=== PATIENT | male | born 1955 | race Two or more races ===

== ENCOUNTER 2021-03-28 01:15 | Emergency (ER) | payer OTHER ==
[~2021-03-28] VITALS: Ht 165.1 cm; Wt 59.9 kg
--- NOTE | 2021-03-28 01:30 | NUR ---
MELECIO [id number] SHAKING AT HOME SINCE AFTERNOON.PATIENT HAD SHINGLE SHOT 1x DAY AGO PATIENT HAD TAKEN ADVIL 2x HR LACQUER POLISHER. PATIENT A/OX 4, RR EVEN AND UNLABORED, NO SOB NOTED. VSS, PATIENT CONNECTED TO MONITOR. WILL CONTINUE TO MONITOR.
--- NOTE | 2021-03-28 02:24 | NUR ---
Patient discharged to home in stable condition. Written and verbal after care instructions given. Patient verbalizes understanding of instruction.
[2021-03-28 02:25] VITALS: BP 141/87
[2021-03-28] MEDS ORDERED: FINA5TAB11 PO (16:00)
[2021-03-28] MEDS ORDERED: TERA10CA4 PO (16:00)
== END 2021-03-28 02:25 | disposition home or self-care (01) ==
LOC: ER 01:17
DX: R51.9 Headache, unspecified (principal); T50.B95A Adverse effect of other viral vaccines, initial encounter; Y92.89 Other specified places as the place of occurrence of the external cause

== ENCOUNTER 2021-03-28 13:32 | Inpatient (IN) | payer OTHER ==
[~2021-03-28] VITALS: Ht 165.1 cm; Wt 66.2 kg
--- NOTE | 2021-03-28 13:55 | NUR ---
PATIENT CAME IN ER, STATED "Had a booster shot for shingles 03/25 yesterday felt hot/cold/chills/shaky". AOX4, NO SOB NOTED, NO C/O PAIN AT THIS TIME, NO S/O ANY ACUTE DISTRESS NOTED. MAKE COMFORTABLE IN BED. WILL CONTINUE TO MONITOR
[2021-03-28] MEDS ORDERED: IV NS 0.9% 1,000 ML BAG IV ONE ×2 (15:00)
[2021-03-28] MEDS ORDERED: CEFTRIAXONE 1GM BAG (ER ONLY) 50 ML IV ONE ×2 (15:00→15:45)
[2021-03-28] MEDS ORDERED: IBUPROFEN 600 MG TABLET PO ONE (15:00)
[2021-03-28 15:13] LABS: BASOPHILS % (AUTO) 0.4 % (0.0-2.0); EOSINOPHILS % (AUTO) 0.7 % (0.0-6.0); HEMATOCRIT 39 % (39-51); HEMOGLOBIN 13.3 g/dL (13.5-17.5); LYMPHOCYTES # (AUTO) 0.2 K/uL (0.8-4.8); LYMPHOCYTES % (AUTO) 2.1 % (20.0-44.0); MEAN CORPUSCULAR HGB CONC 34 g/dl (31.0-36.0); MEAN CORPUSCULAR VOLUME 92 fL (80-96); MONOCYTES # (AUTO) 0.3 K/uL (0.1-1.30); MONOCYTES % (AUTO) 2.9 % (2.0-12.0); NEUTROPHILS % (AUTO) 93.9 % (43.0-81.0); PLATELET COUNT (AUTO) 132 K/uL (150-450); RED BLOOD CELL COUNT(AUTO) 4.26 MIL/uL (4.5-6.0); WHITE BLOOD COUNT (AUTO) 9.6 K/uL (4.3-11.0)
[2021-03-28 15:26] LABS: CALCIUM, SERUM 8.1 mg/dL (8.5-10.1); CREATININE 1.1 mg/dL (0.6-1.3); POTASSIUM 3.5 mmol/L (3.5-5.1)
[2021-03-28 15:41] LABS: ALBUMIN 2.9 g/dL (3.4-5.0); BILIRUBIN,DIRECT 0.2 mg/dL (0.0-0.2); TOTAL PROTEIN, SERUM 6.3 g/dL (6.4-8.2)
[2021-03-28] MEDS ORDERED: IBUPROFEN 600 MG TABLET ONE (15:57)
[2021-03-28] MEDS ORDERED: FINA5TAB11 PO (16:00)
[2021-03-28] MEDS ORDERED: TERA10CA4 PO (16:00)
--- NOTE | 2021-03-28 16:21 | NUR ---
URINE AND SCOID SWABS ARE SENT TO THE LAB
--- NOTE | 2021-03-28 16:43 | NUR ---
[facility] CALLED SPECIAL FORCES ENGINEER SERGEANT PAGED.
[2021-03-28] MEDS ORDERED: FLAGYL/NS RTU 500 MG/100 ML PIGGYBACK IV ONE (17:00)
[2021-03-28] MEDS ORDERED: ASPIRIN 325 MG TABLET PO ONE (17:00)
--- NOTE | 2021-03-28 17:00 | NUR ---
CARDIO CALLED DR. FAITH AMARAL.
[2021-03-28 17:06] LABS: BILIRUBIN,URINE NEGATIVE (NEGATIVE); COLOR,URINE YELLOW (YELLOW); LEUKOCYTE ESTERASE ,URINE NEGATIVE (NEGATIVE); NITRITE, URINE NEGATIVE (NEGATIVE); PROTEIN,URINE 30 mg/dl (NEGATIVE); UGLUCOSE NEGATIVE (NEGATIVE)
[2021-03-28 17:16] LABS: BACTERIA,URINE RARE /HPF (None Seen)
[2021-03-28 17:17] LABS: MUCUS,URINE Few /LPF (None Seen)
[2021-03-28] MEDS ORDERED: ASPIRIN 81 MG TAB.CHEW ONE (17:26)
--- NOTE | 2021-03-28 17:46 | NUR ---
NURSING SUP CALLED AND GOING TO [id number]. NURSE IS WAYLON
[2021-03-28] MEDS ORDERED: ONDANSETRON HCL/PF 4 MG/2 ML VIAL IVP PRN (18:30)
[2021-03-28] MEDS: ENOXAPARIN SODIUM 40 MG/0.4 ML DISP.SYRIN SQ SCH ×2 (18:30→21:33)
[2021-03-28] MEDS ORDERED: Z GUARD REMEDY 2 OZ OINT TP PRN (18:30)
[2021-03-28] MEDS ORDERED: ZOLPIDEM TARTRATE 5 MG TABLET PO PRN (18:30)
[2021-03-28] MEDS ORDERED: MORPHINE SULFATE INJ 2 MG/ML DISP.SYRIN IV PRN (18:30)
[2021-03-28] MEDS ORDERED: MAGNESIUM HYDROXIDE 30 ML UDC PO PRN (18:30)
[2021-03-28] MEDS ORDERED: PANTOPRAZOLE 40 MG VIAL IV ONE ×2 (18:30→21:30)
[2021-03-28] MEDS ORDERED: ACETAMINOPHEN 325 MG TABLET PO PRN (18:30)
--- NOTE | 2021-03-28 18:46 | NUR ---
report given to nurse Moody
--- NOTE | 2021-03-28 18:49 | NUR ---
the patient is transfered to 322 in stable comdition and per policy.
--- NOTE | 2021-03-28 18:58 | NUR ---
RN NOTE PT TRANSFERRED TO ROOM. SELF AMBULATORY WITH STEADY GAIT. IV PRESENT ON L AV 18G PATENT AND FLUSHES WELL. V/S CHECKED. WILL ENDORSE ADMISSION TO PAINTER ORDNANCE NURSE. REPORT GIVEN TO PAINTER ORDNANCE NURSE.
[2021-03-28 19:04] VITALS: BP 112/64
[2021-03-28 19:21] LABS: PROSTATE SPECIFIC ANTIGEN SCR 2.43 ng/mL (0.00-4.00)
[2021-03-28 20:00] VITALS: BP 115/70
--- NOTE | 2021-03-28 20:00 | NUR ---
GARMENT MANUFACTURING SUPERVISORBRAN MIXER NOTES Patient is A&Ox4. VSS. Denies pain or discomfort at this time. No signs of distress. Denies pain or SOB. Pupils equal and reactive to light. 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 Heart rate and rhythm regular. Lung sounds clear throughout. Bowel sounds active x4 quadrants. Lower abd/bowel/upper bladder tender when palpated. Urine clear and jenni. All extremities move evenly. Skin Intact. Hooked up to tele monitor. Oriented patient to unit. IV fluids infusing to LAC #18G.
--- NOTE | 2021-03-28 21:04 | NUR ---
Patient not available at 1830, report received at 1930. 1830 medication Lovenox and Protonix non-administered and re-scheduled for 2100.
[2021-03-28] MEDS: IV NS 0.9% 1,000 ML IV PRN (21:15)
[2021-03-28] MEDS ORDERED: METRONIDAZOLE 500MG/ NS 100ML 100 ML IV ONE (21:56)
[2021-03-28] MEDS: METRONIDAZOLE 500MG/ NS 100ML 500 MG in PREMIX 1 EA IV SCH (21:58)
[2021-03-29] VITALS: BP 120/68
[2021-03-29] MEDS ORDERED: ACETAMINOPHEN 650 MG/SUPP.RECT RC PRN (02:30)
--- NOTE | 2021-03-29 02:45 | NUR ---
Patient with fever 101.2. shaking and chills. New order from for Tylenol 650mg supp since pt is NPO. Given as ordered
[2021-03-29] MEDS ORDERED: IV NS 0.9% 500 ML IV ONE ×2 (03:00)
[2021-03-29 04:00] VITALS: BP 108/52
[2021-03-29] MEDS ORDERED: METRONIDAZOLE 500MG/ NS 100ML 100 ML IV ONE (04:59)
[2021-03-29] MEDS: METRONIDAZOLE 500MG/ NS 100ML 500 MG in PREMIX 1 EA IV SCH ×3 (05:00→20:10)
--- NOTE | 2021-03-29 05:00 | NUR ---
Patient temperature still 102.0 cooling measures initiated, ice pack to core body, cool towel to forehead, room temperature decreased.
--- NOTE | 2021-03-29 07:00 | NUR ---
MS RN CLOSING NOTES Patient is A&Ox4. Stating he feels much better. -chills, perfuse sweating, and fever resolved. Temperature now 98.3. resting well, but easy to rouse. Continues on IVF. Is currently in no distress. Urinating clear jenni urine. Able to make need. known. All needs met by staff.
[2021-03-29 07:17] LABS: BASOPHILS % (AUTO) 0.1 % (0.0-2.0); EOSINOPHILS % (AUTO) 0.2 % (0.0-6.0); HEMATOCRIT 38 % (39-51); HEMOGLOBIN 12.8 g/dL (13.5-17.5); LYMPHOCYTES # (AUTO) 0.3 K/uL (0.8-4.8); LYMPHOCYTES % (AUTO) 3.3 % (20.0-44.0); MEAN CORPUSCULAR HGB CONC 34 g/dl (31.0-36.0); MEAN CORPUSCULAR VOLUME 93 fL (80-96); MONOCYTES # (AUTO) 0.5 K/uL (0.1-1.30); MONOCYTES % (AUTO) 6.3 % (2.0-12.0); NEUTROPHILS % (AUTO) 90.1 % (43.0-81.0); PLATELET COUNT (AUTO) 115 K/uL (150-450); RED BLOOD CELL COUNT(AUTO) 4.08 MIL/uL (4.5-6.0); WHITE BLOOD COUNT (AUTO) 7.8 K/uL (4.3-11.0)
--- NOTE | 2021-03-29 07:20 | NUR ---
ASSOCIATE CONSULTING ENGINEER OPENING NOTES RECEIVED PATIENT IN BED, ALERT AND ORIENTED X 4, ABLE TO MAKE NEEDS KNOWN. ON TELE MONITOR WITH SINUS RHYTHM AT 63. ON ROOM AIR WITH NO RESPIRATORY DISTRESS. WITH IV ACCESS WITH IV FLUID RUNNING NS @ 100ML/HR. COMFORT MEASURES PROVIDED. NO COMPLAINT OF PAIN AT THIS TIME. SAFETY PRECAUTIONS IN PLACED. BED LOCKED ON LOWEST POSITION, CALL LIGHT WITHIN REACH. WILL CONTINUE TO MONITOR PATIENT.
[2021-03-29 07:33] LABS: CALCIUM, SERUM 7.6 mg/dL (8.5-10.1); MAGNESIUM 1.8 mg/dL (1.8-2.4); PHOSPHORUS 1.8 mg/dL (2.5-4.9); POTASSIUM 3.9 mmol/L (3.5-5.1)
[2021-03-29 09:49] VITALS: BP 112/64
[2021-03-29] MEDS: POTASSIUM PHOSPHATE MM 7.5 MMOL in IV NS 0.9% 100 ML IV SCH ×2 (11:48→15:55)
[2021-03-29] MEDS: IV NS 0.9% 1,000 ML IV PRN (13:25)
[2021-03-29] MEDS ORDERED: CEFTRIAXONE 1 G in IV D5W 50 ML IV SCH (16:00)
[2021-03-29 16:34] VITALS: BP 116/58
--- NOTE | 2021-03-29 18:00 | NUR ---
MS RN NOTES RECEIVED A CALL FROM JESUSITA CLAYTON SAYING THAT PATIENT WILL BE TRANSFERRED TO [facility] DUE TO INSURANCE. PATIENT AND NOTIFIED. AWAITING FURTHER INSTRUCTIONS. AWARE.
--- NOTE | 2021-03-29 19:00 | NUR ---
FINE ARTS PACKER OPENING NOTES RECEIVED PATIENT IN BED, ALERT AND ORIENTED X 4, ABLE TO MAKE NEEDS KNOWN. ON ROOM AIR WITH NO RESPIRATORY DISTRESS. WITH MIDLINE FR18 ON RIGHT ARM WITH IV FLUID RUNNING NS @ 100ML/HR. PATIENT DID NOT HAVE ANY EPISODES OF FEVER. COMFORT MEASURES PROVIDED. NO COMPLAINT OF PAIN AT THIS TIME. PATIENT ENDORSED TO NURSE AT [facility] RN JEREMÍAS. PATIENT AWAITING [employer] MAINFRAME SYSTEMS PROGRAMMER BY AMBULANCE. SAFETY PRECAUTIONS IN PLACED. BED LOCKED ON LOWEST POSITION, CALL LIGHT WITHIN REACH. WILL ENDORSE PATIENT FOR CONTINUITY OF CARE.
--- NOTE | 2021-03-29 20:00 | NUR ---
MAIL PROCESSING CLERK OPENING NOTES Patient is awake, A&Ox4, family at bedside. No signs of distress. In stable condition. Called transport -stated that ETA to be transferred to [place] is now 2114. Patient and family made aware. Report already given to Papo Vergara RN from AM nurse, but will give updates.
[2021-03-29] MEDS: ENOXAPARIN SODIUM 40 MG/0.4 ML DISP.SYRIN SQ SCH (20:11)
--- NOTE | 2021-03-29 23:02 | NUR ---
vest busheler arrived along with RN to transport patient to [facility]. Patient is in stable condition. VS: BP 143/79, O2 sat 97% on RA, Temp 98.6, HR 58, and RR 19. Denies pain. All needs met. Left with paperwork and CD. Called [facility] for update. Patient discharged at 2300.
== END 2021-03-29 23:39 | disposition short-term general hospital (02) | DRG 871 ==
LOC: ER 13:35 → TELE 18:32 → MED 03-29 15:15
PROVIDERS: ADMIT Nurse Practitioner Acute Care; ATTEND Nurse Practitioner Acute Care
DX: A41.9 Sepsis, unspecified organism (principal); I21.A1 Myocardial infarction type 2; E44.0 Moderate protein-calorie malnutrition; N39.0 Urinary tract infection, site not specified; K57.32 Diverticulitis of large intestine without perforation or abscess without bleeding; D64.9 Anemia, unspecified; E88.09 Other disorders of plasma-protein metabolism, not elsewhere classified; N40.0 Benign prostatic hyperplasia without lower urinary tract symptoms; K44.9 Diaphragmatic hernia without obstruction or gangrene; Z20.822 Contact with and (suspected) exposure to COVID-19; Z68.24 Body mass index [BMI] 24.0-24.9, adult; K57.30 Diverticulosis of large intestine without perforation or abscess without bleeding; B96.89 Other specified bacterial agents as the cause of diseases classified elsewhere
CPT/HCPCS: 36415; 71045-TC; 80048-TC; 80061-TC; 80076-TC; 81001; 82962-TC; 83605-TC; 83735-TC; 84100-TC; 84153-TC; 84154-TC; 84484-TC; 85025-TC; 85730-TC; 87040-TC; 87081-TC; 87086-TC; 93307-TC; A4216; C9113; C9803; G0378; J0696; J1650; J3490; J7030; J7040; J7060